=== PATIENT | female | born 1955 | race Caucasian/White ===

== ENCOUNTER 2017-02-28 06:44 | Day surgery (SDC) | payer BC ==
[2017-02-28] MEDS ORDERED: PROPOFOL 500 MG/50 ML EMU IV ONE (06:55)
[2017-02-28] MEDS ORDERED: LIDOCAINE HCL 1% MPF SOL ONE (06:55)
[2017-02-28 08:51] VITALS: TEMP 97.3
[2017-02-28 09:15] VITALS: RESP 20
[2017-02-28 09:20] VITALS: BP 180/104; PULSE 64; O2SAT 96
== END 2017-02-28 09:34 | disposition home or self-care (01) ==
LOC: SURG 06:44
PROVIDERS: ATTEND Internal Medicine Gastroenterology
DX: Z12.11 Encounter for screening for malignant neoplasm of colon (principal); Z86.010 Personal history of colon polyps; K64.4 Residual hemorrhoidal skin tags; K57.30 Diverticulosis of large intestine without perforation or abscess without bleeding; D12.5 Benign neoplasm of sigmoid colon; K64.8 Other hemorrhoids; E11.9 Type 2 diabetes mellitus without complications; Z79.4 Long term (current) use of insulin
CPT/HCPCS: 45380; 82962; 99001; J2001; J2704

== ENCOUNTER 2018-07-15 18:56 | Emergency (ER) | payer BC ==
[2018-07-15] MEDS ORDERED: CYCLOBENZAPRINE 10 MG TAB PO ONE (19:12)
[2018-07-15] MEDS ORDERED: ACETAMI/HYDROCO 325/10 TAB PO ONE (19:17)
[2018-07-15 19:19] VITALS: RESP 22; TEMP 96.3
[2018-07-15] MEDS ORDERED: CYCLOBENZAPRINE 10 MG TAB ONE (19:20)
[2018-07-15] MEDS ORDERED: APAP/HYDROCODONE 1 EACH TABLET ONE (19:22)
[2018-07-15] MEDS ORDERED: KETOROLAC TROMETHAMINE 30 MG/ML SOL IM ONE (20:24)
[2018-07-15] MEDS ORDERED: KETOROLAC TROMETHAMINE 30 MG/ML SOL ONE (21:15)
[2018-07-15 23:12] VITALS: BP 168/144; PULSE 80; O2SAT 96
== END 2018-07-15 21:30 | disposition home or self-care (01) ==
LOC: ED 18:56
DX: M54.2 Cervicalgia (principal)
CPT/HCPCS: 72040; 96372; 99283; J1885; A9270-GY